=== PATIENT | male | born 1995 | race Caucasian/White ===

== ENCOUNTER 2019-11-30 12:58 | Emergency (ER) | payer OTHER ==
[~2019-11-30] VITALS: Ht 182.9 cm; Wt 83.0 kg
[~2019-11-30 12:58] MED LIST: EQL CHILDRE5 MG/5 ML PO; NASONEX50 MCG/AC NAB; TESSALON PER100 MG PO; ZPAK PO
[2019-11-30] MEDS ORDERED: AMOXICILLIN500 MG PO (13:43)
[2019-11-30 13:50] VITALS: BP 128/65
== END 2019-11-30 13:50 | disposition home or self-care (01) | DRG 153 ==
LOC: ED 12:58
DX: J02.9 Acute pharyngitis, unspecified (principal); Z20.828 Contact with and (suspected) exposure to other viral communicable diseases